=== PATIENT | female | born 1950 | race Caucasian/White ===

== ENCOUNTER → 2018-02-27 09:20 | Outpatient (CLI) | payer OTHER, SELFPAY ==
--- NOTE | 2018-02-27 | DI.MG.S_ITS ---
BILATERAL DIGITAL SCREENING MAMMOGRAM 3D/2D WITH CAD: 02/27/2018 CLINICAL: Routine screening. Family history of breast cancer. Comparison is made to exams dated: 12/08/2016 mammogram, 12/06/2015 mammogram, and 06/04/2014 mammogram - [facility]. The tissue of both breasts is heterogeneously dense. This may lower the sensitivity of mammography. Current study was also evaluated with a Computer Aided Detection (CAD) system. There is a biopsy clip in the right breast. No significant masses, calcifications, or other findings are seen in either breast. There has been no significant interval change. IMPRESSION: NEGATIVE There is no mammographic evidence of malignancy. A 1 year screening mammogram is recommended. This exam was interpreted at Station ID: [id number]. NOTE: For mammograms, a report in lay terms will be sent to the patient. Approximately 15% of breast malignancies will not be visualized mammographically. In the management of a palpable breast mass, a negative mammogram must not discourage biopsy of a clinically suspicious lesion. Electronically Signed By: Kasia seymour/chalino:02/27/2018 09:55:03 letter sent: Normal Exam ACR BI-RADS Category 1: Negative 3341F
== END ==
PROVIDERS: PCP Family Medicine; Visit Provider Orthopaedic Surgery
DX: Z12.31 Encounter for screening mammogram for malignant neoplasm of breast (principal); Z80.3 Family history of malignant neoplasm of breast
CPT/HCPCS: 77063; 77067

== ENCOUNTER → 2018-03-27 15:22 | Outpatient (CLI) | payer OTHER, SELFPAY ==
--- NOTE | 2018-03-27 | DI.RAD.S_ITS ---
PROCEDURE: XR CHEST 2V INDICATIONS: Bronchitis, not specified as acute or chronic TECHNIQUE: 2 views of the chest were acquired. COMPARISON: None. FINDINGS: Surgical changes and devices: None. Lungs and pleura: No pleural effusions or pneumothorax. Lungs are clear. Mediastinum: Mediastinal contours are normal. Heart size is normal. Bones and chest wall: No suspicious bony abnormalities. Age-appropriate bony degenerative changes are seen. Soft tissues appear unremarkable. IMPRESSION: No focal infiltrates are seen. Dictated by: Kristopher Catherine M.D. on 03/27/2018 at 15:00 Approved by: Kristopher Catherine M.D. on 03/27/2018 at 15:00
== END ==
PROVIDERS: PCP Family Medicine; Visit Provider Family Medicine
DX: J40 Bronchitis, not specified as acute or chronic (principal)
CPT/HCPCS: 71046

== ENCOUNTER → 2019-03-26 15:49 | Outpatient (CLI) | payer OTHER, SELFPAY ==
--- NOTE | 2019-03-26 | DI.MG.S_ITS ---
BILATERAL DIGITAL SCREENING MAMMOGRAM 3D/2D WITH CAD: 03/26/2019 CLINICAL: Routine screening. Family history of breast cancer. Comparison is made to exams dated: 02/27/2018 mammogram - [facility], 12/08/2016 mammogram, and 12/06/2015 mammogram - [facility]. The tissue of both breasts is heterogeneously dense. This may lower the sensitivity of mammography. Current study was also evaluated with a Computer Aided Detection (CAD) system. No significant masses, calcifications, or other findings are seen in either breast. There has been no significant interval change. IMPRESSION: NEGATIVE There is no mammographic evidence of malignancy. A 1 year screening mammogram is recommended. This exam was interpreted at Station ID: [id number]. NOTE: For mammograms, a report in lay terms will be sent to the patient. Approximately 15% of breast malignancies will not be visualized mammographically. In the management of a palpable breast mass, a negative mammogram must not discourage biopsy of a clinically suspicious lesion. Electronically Signed By: Calixto diallo/chalino:03/26/2019 21:19:55 letter sent: Normal Exam ACR BI-RADS Category 1: Negative 3341F
== END ==
PROVIDERS: PCP Family Medicine; Visit Provider Family Medicine
DX: Z12.31 Encounter for screening mammogram for malignant neoplasm of breast (principal); Z80.3 Family history of malignant neoplasm of breast
CPT/HCPCS: 77063; 77067

== ENCOUNTER → 2019-06-01 12:39 | Outpatient (CLI) | payer OTHER, SELFPAY ==
--- NOTE | 2019-06-01 | DI.RAD.S_ITS ---
PROCEDURE: XR KNEE RT 3V INDICATIONS: knee pain TECHNIQUE: 3 views of the knee were acquired. COMPARISON: [facility], CR, XR KNEE LT 3V, 06/01/2019, 12:52. FINDINGS: Bones: No fractures or dislocations. No suspicious bony lesions. On the sunrise view, there is moderate to severe lateral patellofemoral joint space narrowing seen. Osteophyte formation can be seen along the margins of the patella. Lateral subluxation of the patella is seen. The femorotibial joint spaces are relatively well-preserved. Soft tissues: There is a minimal to mild right knee joint effusion. No suspicious soft tissue calcifications. IMPRESSION: Moderate to severe lateral patellofemoral joint degenerative change is seen, with lateral subluxation of the patella. Dictated by: Kristopher Catherine M.D. on 06/01/2019 at 12:37 Approved by: Kristopher Catherine M.D. on 06/01/2019 at 12:37
--- NOTE | 2019-06-01 | DI.RAD.S_ITS ---
PROCEDURE: XR KNEE LT 3V INDICATIONS: knee pain TECHNIQUE: 3 views of the knee were acquired. COMPARISON: [facility], CR, XR KNEE RT 3V, 06/01/2019, 12:52. FINDINGS: Bones: No fractures or dislocations. No suspicious bony lesions. The femorotibial joint spaces are relatively well-preserved. On the sunrise view, there is bilateral patellofemoral joint space narrowing seen. Osteophyte formation can be seen along the margins of the patella. Soft tissues: There is a small joint effusion. No suspicious soft tissue calcifications. IMPRESSION: Small left knee joint effusion. Focal lateral patellofemoral joint degenerative change. Dictated by: Kristopher Catherine M.D. on 06/01/2019 at 12:36 Approved by: Kristopher Catherine M.D. on 06/01/2019 at 12:36
== END ==
PROVIDERS: PCP Family Medicine; Visit Provider Family Medicine
DX: M25.561 Pain in right knee (principal); M25.562 Pain in left knee; M25.462 Effusion, left knee; M25.461 Effusion, right knee; M25.762 Osteophyte, left knee; M25.761 Osteophyte, right knee
CPT/HCPCS: 73562

== ENCOUNTER → 2020-04-28 16:34 | Outpatient (CLI) | payer OTHER, SELFPAY ==
--- NOTE | 2020-04-28 16:47 | DI.MG.S_ITS ---
Patient Name: MATT TURNER date: 1950 Sex: F Attending Physician: Niya Indications: Date: 04/28/2020 16:41 At the request of: JUAN J RUIZ Procedure: MM screening mammo BI BILATERAL DIGITAL SCREENING MAMMOGRAM 3D/2D WITH CAD: 04/28/2020 CLINICAL: Routine screening. Family history of breast cancer. Comparison is made to exams dated: 03/26/2019 mammogram, 02/27/2018 mammogram - [facility], and 12/08/2016 mammogram - [facility]. The tissue of both breasts is heterogeneously dense. This may lower the sensitivity of mammography. Current study was also evaluated with a Computer Aided Detection (CAD) system. No significant masses, calcifications, or other findings are seen in either breast. There has been no significant interval change. IMPRESSION: NEGATIVE There is no mammographic evidence of malignancy. A 1 year screening mammogram is recommended. This exam was interpreted at Station ID: [id number]. NOTE: For mammograms, a report in lay terms will be sent to the patient. Approximately 15% of breast malignancies will not be visualized mammographically. In the management of a palpable breast mass, a negative mammogram must not discourage biopsy of a clinically suspicious lesion. Electronically Signed By: Andi Mcdonnell M.D., jr/chalino:04/28/2020 16:57:15 letter sent: Normal Exam ACR BI-RADS Category 1: Negative 3341F
== END ==
PROVIDERS: PCP Family Medicine; Referring Provider Family Medicine; Visit Provider Family Medicine
DX: Z12.31 Encounter for screening mammogram for malignant neoplasm of breast (principal); Z80.3 Family history of malignant neoplasm of breast
CPT/HCPCS: 77063; 77067

== ENCOUNTER → 2021-05-25 15:07 | Outpatient (CLI) | payer OTHER, SELFPAY ==
--- NOTE | 2021-05-25 | DI.MG.S_ITS ---
BILATERAL DIGITAL SCREENING MAMMOGRAM 3D/2D WITH CAD: 05/25/2021 CLINICAL: Routine screening. Family history of breast cancer. Comparison is made to exams dated: 04/28/2020 mammogram, 03/26/2019 mammogram, and 02/27/2018 mammogram - [facility]. The tissue of both breasts is heterogeneously dense. This may lower the sensitivity of mammography. Current study was also evaluated with a Computer Aided Detection (CAD) system. No significant masses, calcifications, or other findings are seen in either breast. There has been no significant interval change. IMPRESSION: NEGATIVE There is no mammographic evidence of malignancy. A 1 year screening mammogram is recommended. This exam was interpreted at Station ID: [id number]. NOTE: For mammograms, a report in lay terms will be sent to the patient. Approximately 15% of breast malignancies will not be visualized mammographically. In the management of a palpable breast mass, a negative mammogram must not discourage biopsy of a clinically suspicious lesion. Electronically Signed By: Elder florian/chalino:05/25/2021 16:12:47 copy to: ALEC FITZPATRICK letter sent: Normal Exam ACR BI-RADS Category 1: Negative 3341F
--- NOTE | 2021-05-25 | DI.RAD.S_ITS ---
PROCEDURE: XR DEXA AXIAL SKELETON INDICATIONS: ROUTINE SCREENING COMPARISON: None. FINDINGS: This blank DEXA report has been sent in error by the PACS system. The correct and complete report will be forthcoming in 1-2 days. Thank you for your patience and understanding. Dictated by: Amee Cleaning MD, PhD on 05/26/2021 at 10:04 Approved by: Amee Cleaning MD, PhD on 05/26/2021 at 10:04
== END ==
PROVIDERS: PCP Family Medicine; Referring Provider Family Medicine; Visit Provider Family Medicine
DX: M85.80 Other specified disorders of bone density and structure, unspecified site (principal); Z12.31 Encounter for screening mammogram for malignant neoplasm of breast; M81.0 Age-related osteoporosis without current pathological fracture; Z80.3 Family history of malignant neoplasm of breast
CPT/HCPCS: 77063; 77067; 77080

== ENCOUNTER → 2022-08-30 14:58 | Outpatient (CLI) | payer OTHER, SELFPAY ==
--- NOTE | 2022-08-30 | DI.MG.S_ITS ---
BILATERAL DIGITAL SCREENING MAMMOGRAM 3D/2D WITH CAD: 08/30/2022 CLINICAL: Routine screening. Family history of breast cancer. Comparison is made to exams dated: 05/25/2021 mammogram, 04/28/2020 mammogram, and 03/26/2019 mammogram - [facility]. Both breasts are heterogeneously dense, which may obscure small masses (category c / 51-75% glandular tissue). Current study was also evaluated with a Computer Aided Detection (CAD) system. No significant masses, calcifications, or other findings are seen in either breast. There has been no significant interval change. IMPRESSION: NEGATIVE There is no mammographic evidence of malignancy. A 1 year screening mammogram is recommended. Based on the Tyrer Cuzick model (a risk assessment model) the patient's lifetime risk is 7.3% and her 10 year risk is 5.5%. According to the ACR, ACS, and NCCN guidelines, an annual breast MRI exam along with mammogram is recommended if the patient's lifetime risk is 20% or greater. This exam was interpreted at Station ID: [id number]. NOTE: For mammograms, a report in lay terms will be sent to the patient. Approximately 15% of breast malignancies will not be visualized mammographically. In the management of a palpable breast mass, a negative mammogram must not discourage biopsy of a clinically suspicious lesion. Electronically Signed By: Andi Mcdonnell M.D., jr/chalino:08/31/2022 12:43:26 copy to: ALEC FITZPATRICK letter sent: Normal Exam ACR BI-RADS Category 1: Negative 3341F
--- NOTE | 2022-08-30 14:59 | DI.MRI.S_ITS ---
PROCEDURE: MR FOOT RT WO CON INDICATIONS: RIGHT ANKLE AND FOOT PAIN TECHNIQUE: Noncontrast sagittal T1 spin echo and T2 fast spin echo with fat saturation, long-axis T1 spin echo and stir, short-axis T1 spin echo and T2 fast spin echo with fat saturation through the forefoot. COMPARISON: None. FINDINGS: Image quality: Excellent. Bones and joints: Mildly displaced fracture of the anterior process of the calcaneus is partially imaged at the margins of the field of view of this exam with associated osseous edema. Irregular bone injury and possible fracture of the adjacent cuboid bone is also noted. Findings are better evaluated on the MR ankle exam performed the same time. Mild osseous edema is seen in the plantar portion of the talar head and plantar lateral navicular. There is mild focal osseous edema at the dorsal aspect of the 5th metatarsal head without a discrete fracture line, possibly related to direct contusion. No acute fracture is seen in the forefoot. Soft tissues: There is grade 3 fatty infiltration of the intrinsic foot musculature that is most likely related to chronic denervation changes. Visualized flexor and extensor tendons appear intact, without tenosynovitis. The distal insertions of the peroneus brevis and longus tendons appear intact. The principal Lisfranc ligament appears intact. No soft tissue ganglion cysts or bursal fluid collections. Sagittal images demonstrate no evidence for plantar plate tears. IMPRESSION: 1. Minimally displaced fracture of the anterior process of the calcaneus extending into the calcaneocuboid articulation. Moderate trabecular bone injury and suspected nondisplaced fracture of the cuboid. Mild trabecular bone injury at the plantar aspect of the talar head and navicular. Findings are included at the margins of the field of view of this exam and are better seen on the MRI of the ankle performed same time. Please see the separate report from that exam for detailed findings. 2. Mild osseous edema in the 5th metatarsal head may be secondary to a direct contusion. 3. Fatty infiltration of the intrinsic foot musculature is most likely secondary to chronic denervation changes. Approved by: Raj Stubbs M.D. on 08/30/2022 at 20:40
--- NOTE | 2022-08-30 14:59 | DI.MRI.S_ITS ---
PROCEDURE: MR ANKLE RT WO CON INDICATIONS: RIGHT ANKLE AND FOOT PAIN TECHNIQUE: Noncontrast sagittal T1 spin echo and T2 fast spin echo with fat saturation, axial proton density fast spin echo and T2 fast spin echo with fat saturation, coronal T1 spin echo and T2 fast spin echo with fat saturation through the ankle/hindfoot. COMPARISON: None. FINDINGS: Image quality: Excellent. Bones and joints: There is extensive marrow edema involving mid to distal portion of calcaneus, adjacent cuboid, inferior portion of mid to distal talus adjacent to subtalar joint and inferior portion of navicular bone. Fracture through distal and superior portion of the calcaneus adjacent to calcaneocuboid joint is seen with up to 3 mm diastasis at fracture site. Subtle linear hypointense signal involving lateral periphery of proximal cuboid is also seen. No other fracture line is identified. No osteochondral injuries of talar dome. Small to moderate amount of tibiotalar and subtalar joint effusion is noted, no gross loose bodies. Mild midfoot and hindfoot joint osteoarthritic changes are seen. Medial structures: The posterior tibialis, flexor digitorum longus, and flexor hallucis longus tendons are intact. The posterior tibial neurovascular bundle appears normal within the tarsal tunnel, without extrinsic mass effect. The deep layer (anterior and posterior tibiotalar ligaments) and superficial layer (tibionavicular, tibiospring, and tibiocalcaneal ligaments) of the deltoid ligament appear normal. The spring ligament components (superomedial calcaneonavicular, medioplantar oblique calcaneonavicular, and inferoplantar longitudinal ligaments) are intact. Lateral structures: The anterior talofibular ligament is markedly attenuated with intrasubstance T2 hyperintense signal suggestive of moderate to high-grade partial-thickness tear. The calcaneofibular, and posterior talofibular ligaments are mildly thickened. Small amount of fluid distending flexor tendon sheath at the level of talonavicular joint is seen. More superiorly, the anterior and posterior tibiofibular ligaments appear intact, as is the intermalleolar ligament. The tibiofibular syndesmosis is normal in width at 2 mm or less. The peroneus longus and brevis tendons are mildly thickened with small amount of fluid distending tendon sheath along lateral periphery of mid to distal calcaneus and calcaneocuboid joint.. Adjacent bony peroneal tubercle and retrotrochlear prominence are normal in size. The sinus tarsi demonstrates normal fatty signal, without edema, fibrosis, or cyst formation. Visualized sinus tarsi components (cervical ligament, interosseous talocalcaneal ligament, roots of the inferior extensor retinaculum) appear normal. The calcaneonavicular and calcaneocuboid components of the bifurcate ligament appear intact. The dorsal calcaneocuboid ligament appears intact. Anterior structures: The tibialis anterior, extensor hallucis longus, and extensor digitorum longus tendons appear intact. The dorsal talonavicular ligament appears intact. Posterior and plantar structures: Achilles tendon is intact. Medial and lateral bands of the plantar fascia are of normal thickness. No abductor digiti quinti muscle atrophy to suggest Garcia neuropathy. IMPRESSION: 1. Slightly displaced fracture involving dorsal and lateral portion of distal calcaneus adjacent to calcaneocuboid joint. Subtle nondisplaced fracture also noted involving adjacent lateral portion of proximal cuboid bone. Bony contusion involving inferior aspect of distal talus without discrete fracture line. Mild bony contusion also seen involving inferior inferior and lateral aspect of navicular bone without discrete fracture line. 2. Small to moderate amount of joint effusion, no gross loose bodies. Mild midfoot and hindfoot joint osteoarthritis. No osteochondral injuries of talar dome. 3. Low-grade tenosynovitis involving flexor tendons. Tendinosis and low-grade tenosynovitis involving peroneus tendons as above. No full-thickness ankle tendon rupture. 4. Suggestion of moderate to high-grade partial-thickness tear involving anterior talofibular ligament. Low-grade sprain involving posterior talofibular ligament and calcaneofibular ligament. Dictated by: Gonzalo Bobo M.D. on 08/30/2022 at 17:20 Approved by: Gonzalo Bobo M.D. on 08/30/2022 at 17:31
== END ==
PROVIDERS: PCP Family Medicine; Referring Provider Family Medicine; Visit Provider Family Medicine
DX: Z12.31 Encounter for screening mammogram for malignant neoplasm of breast (principal); Z80.3 Family history of malignant neoplasm of breast; S92.001A Unspecified fracture of right calcaneus, initial encounter for closed fracture; S92.214A Nondisplaced fracture of cuboid bone of right foot, initial encounter for closed fracture; S93.491A Sprain of other ligament of right ankle, initial encounter; S93.411A Sprain of calcaneofibular ligament of right ankle, initial encounter; M19.071 Primary osteoarthritis, right ankle and foot; M25.571 Pain in right ankle and joints of right foot; M25.471 Effusion, right ankle; M65.871 Other synovitis and tenosynovitis, right ankle and foot; X58.XXXA Exposure to other specified factors, initial encounter
CPT/HCPCS: 73718; 73721; 77063; 77067

== ENCOUNTER → 2022-09-22 14:42 | Outpatient (CLI) | payer OTHER, SELFPAY | PROVIDERS: PCP Family Medicine; Referring Provider Family Medicine; Visit Provider Family Medicine | DX: S92.054A Nondisplaced other extraarticular fracture of right calcaneus, initial encounter for closed fracture; Z78.0 Asymptomatic menopausal state; Z92.23 Personal history of estrogen therapy | CPT/HCPCS: 77080 ==

== ENCOUNTER → 2023-06-27 12:37 | Outpatient (CLI) | payer OTHER, SELFPAY ==
--- NOTE | 2023-06-27 12:38 | DI.US.S_ITS ---
PROCEDURE: US PELVIC COMPLETE INDICATIONS: PMB; ENDOMETRIAL HYPERPLASIA TECHNIQUE: Real-time scanning was performed of the pelvic organs, with image documentation. Additional endovaginal scanning was necessary due to incomplete visualization of the adnexal and endometrial structures by transabdominal scanning. COMPARISON: None. FINDINGS: Uterus: Uterus is anteverted and normal in size at 6.8 by 4.9 cm. The myometrium is homogeneous. The endometrium measures 10.4 mm combined thickness. There is a 2.2 x 2.8 x 1.6 centimeter left-sided submucosal fibroid. Ovaries: The ovaries are not definitely seen. No adnexal masses are seen. Other: No pathologic free abdominal or pelvic fluid. IMPRESSION: 1. Thickened endometrium at 10.4 millimeters. Given the imaging findings possible endometrial biopsy should be considered. 2. 2.8 centimeter left-sided sub mucosal fibroid. 3. Ovaries not definitely visualized. .We strive to produce accurate, complete, and clear reports of imaging services. To assist us in improving patient care, this report was composed using standard report templates and voice recognition software. Therefore, it may contain abnormal punctuation, insertions and/or omissions. Occasional wrong-word or sound-alike substitutions may occur. Though we review the report and make efforts to correct it, we do recommend that the report be read carefully in proper context to recognize any text inaccuracies. Dictated by: Rodney Morales M.D. on 06/27/2023 at 15:39 Approved by: Rodney Morales M.D. on 06/27/2023 at 15:45
== END ==
PROVIDERS: PCP Family Medicine; Referring Provider Obstetrics & Gynecology; Visit Provider Obstetrics & Gynecology
DX: N95.0 Postmenopausal bleeding (principal); R93.89 Abnormal findings on diagnostic imaging of other specified body structures; D25.0 Submucous leiomyoma of uterus
CPT/HCPCS: 76830; 76856

== ENCOUNTER → 2023-09-12 11:40 | Outpatient (CLI) | payer OTHER, SELFPAY ==
--- NOTE | 2023-09-12 | DI.MG.S_ITS ---
BILATERAL DIGITAL SCREENING MAMMOGRAM 3D/2D WITH CAD: 09/12/2023 CLINICAL: Routine screening. Family history of breast cancer. Comparison is made to exams dated: 08/30/2022 mammogram, 05/25/2021 mammogram, 04/28/2020 mammogram, and 03/26/2019 mammogram - [facility]. Both breasts are heterogeneously dense, which may obscure small masses (category c / 51-75% glandular tissue). Current study was also evaluated with a Computer Aided Detection (CAD) system. There is a biopsy clip in the right breast. No significant masses, calcifications, or other findings are seen in either breast. There has been no significant interval change. IMPRESSION: NEGATIVE There is no mammographic evidence of malignancy. A 1 year screening mammogram is recommended. Based on the Tyrer Cuzick model (a risk assessment model) the patient's lifetime risk is 6.9% and her 10 year risk is 5.7%. According to the ACR, ACS, and NCCN guidelines, an annual breast MRI exam along with mammogram is recommended if the patient's lifetime risk is 20% or greater. This exam was interpreted at Station ID: [id number]. NOTE: For mammograms, a report in lay terms will be sent to the patient. Approximately 15% of breast malignancies will not be visualized mammographically. In the management of a palpable breast mass, a negative mammogram must not discourage biopsy of a clinically suspicious lesion. Electronically Signed By: Martin javier/chalino:09/12/2023 20:45:34 copy to: ALEC FITZPATRICK letter sent: Normal Exam ACR BI-RADS Category 1: Negative 3341F
== END ==
LOC: MAMMO 11:40
PROVIDERS: PCP Family Medicine; Referring Provider Family Medicine; Visit Provider Family Medicine
DX: Z12.31 Encounter for screening mammogram for malignant neoplasm of breast (principal); Z80.3 Family history of malignant neoplasm of breast; R92.333 Mammographic heterogeneous density, bilateral breasts
CPT/HCPCS: 77063; 77067

== ENCOUNTER 2023-10-26 06:22 | Day surgery (SDC) | payer OTHER, SELFPAY ==
[2023-10-25 08:28] VITALS: BMI 27.6
[2023-10-26] VITALS (13 sets, daily range): BP systolic 86–134; BP diastolic 48–80; PULSE 53–75; RESP 12–18; TEMP 36.2–37.8; O2SAT 94–100; BMI 27.6
--- NOTE | 2023-10-26 | PATH_ITS ---
[facility] Accession Number: [id number] No. of containers..01 Tissue . 01 Material submitted: . uterus - CERVIX,UTERUS,BILATERIAL FALLOPIAN TUBES, BILATERAL OVARIES . 01 Diagnosis: CERVIX, UTERUS, BILATERAL FALLOPIAN TUBES AND BILATERAL OVARIES, HYSTERECTOMY AND BILATERAL SALPINGO-OOPHORECTOMY: Cervix with mild chronic inflammation; no dysplasia or malignancy. Inactive endometrium. Benign endometrial polyp. Leiomyomata. Bilateral ovaries with benign inclusion cysts but with otherwise no significant pathologic alterations. Bilateral fimbriated fallopian tubes with benign paratubal cyst but with otherwise no significant pathologic alterations. [facility] 11/02/2023 1501 Local . 01 Electronically signed: . Mel Zavaleta MD, Pathologist NPI- [id number] . 01 Gross description: . The specimen is received in formalin labeled with the patient's name, , and cervix, uterus, bilateral fallopian tubes, bilateral ovaries, and consists of a uterus with detached cervix (104 grams, 5.6 cm from superior to inferior, 5.5 cm from medial to lateral, and 4.1 cm from anterior to posterior), with detached cervix (1.2 x 1.1 cm and 4.7 cm in length), with attached left fallopian tube (6.4 x 0.7 cm), attached left ovary (5 grams, 3.5 x 1.6 x 0.9 cm), attached right fallopian tube (6.3 x 0.6 cm), attached right ovary (5 grams, 3.5 x 1.5 x 1.0 cm). . The ectocervix is smith, friable, and denuded with a circular os measuring 0.3 cm in diameter. The paracervical margin is inked red. . The anterior cut surface of the uterus is inked blue while the posterior cut surface of the uterus is inked black. The serosa is smith and smooth with a small freely moving yellow-orange nodule measuring0.3 x 0.2 x 0.2 cm with no additional lesions identified. The endocervical canal has smith herringbone mucosa and measures 3.5 cm in length. The endometrial cavity measures 3.1 cm from cornu to cornu, 2.1 cm in length with pink-red, velvety endometrium, and a polypoid lesion measuring 2.3 x 0.7 x 0.5 cm. The endometrium averages less than 0.1 cm thick. The myometrium is pink-smith and trabecular measuring up to 2.1 cm in maximum thickness with multiple well-circumscribed white whorled nodules ranging from 0.6 to 2.2 cm with no hemorrhage or necrosis identified. . The left fallopian tube has violaceous, smooth serosa with no cysts identified, and sectioning reveals an unremarkable stellate lumen. The left ovary has a yellow, cerebriform external surface, and sectioning reveals a thin, smooth-walled cystic structure measuring 0.6 cm in greatest dimension with no excrescences identified and filled with smith serous fluid. The remaining cut surfaces are physiologic and unremarkable. . The right fallopian tube has smith, smooth serosa with no cysts identified, and sectioning reveals an unremarkable stellate lumen. The left ovary has a yellow, cerebriform external surface, and sectioning reveals a smiht, soft cut surface with no discrete lesions identified. . Atv Mechanic sections are submitted as follows: A1: Cervix. A2: Anterior full thickness section. A3: Posterior full thickness section. A4: Endometrial polypoid structure. A5: Serosa with nodule. A6: Well-circumscribed nodules. A7: Left fallopian tube to include one-half of bisected fimbriae and cross-sections. A8: Left ovary. A9: Right fallopian tube to include one-half of bisected fimbriae and cross-sections. A10: Right ovary. ([id number]) /JACQUELINE 10/27/20238 Local . 01 Pathologist provided ICD-10: N95.0, N84.0, D25.9 . 01 CPT . 546430 Specimen Comment: A courtesy copy of this report has been sent to [phone] Performed at: 01 [facility] [address], [place], [place] [id number] MD Elder Johnson MD Phone: [phone]
[2023-10-26] MEDS: LACTATED RINGERS 1,000 ML 42 ML IV ×2 (07:16→08:48)
--- NOTE | 2023-10-26 07:40 | PM.PREOP ---
Pre-operative Note COVID-19 COVID-19 status: Not tested Interval Note History & Physical reviewed/Exam performed by Physician: Yes Changes to H&P: No
[2023-10-26] MEDS: ACETAMINOPHEN IV 1,000 MG/100 ML VIAL 400 MG IV (08:00)
[2023-10-26] MEDS: CEFAZOLIN 2 GM/100 ML PREMIX 100 ML IV (08:07)
--- NOTE | 2023-10-26 08:14 | SUR.OPER ---
Lithotomy on padded OR bed. [place] Pad Positioner under torso. Head on pillow, arms padded and tucked at sides. Legs secured in padded yellow fins stirrups.
[2023-10-26] MEDS: BUPIVACAINE 0.5% (PF) 30 ML, EPINEPHrine 0.15 MG INJ (08:18)
[2023-10-26] MEDS: ROPIVACAINE 0.2% PF 2 MG/ML 10ML AMP 20 ML INJ (08:19)
--- NOTE | 2023-10-26 10:06 | P.OP_ITS ---
Operative Date/Time/Diagnoses Date of procedure: 10/26/23 Time of procedure: 08:05 Pre-op diagnosis: Persistent postmenopausal bleeding Submucous myoma Post-op diagnosis: same Procedure & Clinicians Procedure: Procedures Operation Date: 10/26/23 07:45 Actual Procedure Side Surgeon p Laparoscopic Total Hysterectomy with bilateral salpingo-oophorectomy Luigi Isidro MD Indications: Liz is a 70 yo WF who had elected to continue low-dose HRT due to night sweats and vasomotor symptoms which are relieved only with estrogen therapy. She was on Vivelle Dot 0.05 mg daily and Prometrium 200 mg HS. Her most recent mammogram was 02/2020 and she's noted no changes on BSE or any PMB. Despite her negative w orkup in 2021, Liz has continued to episodically have spotting and decided to discontinue her hormone replacement therapy back on November 24, 2021. She is feeling well off of HRT and is not having issues sleep she would had previously when she attempted to discontinue HRT. Her , is however concerned that there may be an occult malignancy and suggested she consider hysterectomy. After extensive discussions with the patient and her , she wants to move forward with total laparoscopic hysterectomy and bilateral salpingo- oophorectomy. She presents today for her scheduled surgery. Surgeon: Luigi Isidro Radiological Defense Officer: Jennifer Rose Anesthesia Type: General Operative Notes Findings: The body of the uterus is normal in size and shape with the exception of a submucous/intramural myoma involving the back wall of the uterine fundus. Both tubes and ovaries appear normal. In the posterior cul-de-sac there are translucent white blebs which may be consistent with atrophic endometriosis implants. The remainder of the abdomen and pelvis were normal to laparoscopic inspection. Closure Type: primary Specimen(s): left tube & ovary, right tube & ovary and uterus Applied: catheter Estimated blood loss (mL): 75 Blood products transfused: none Procedure in detail: With the patient in modified dorsal lithotomy position preparations were made by prepping and draping the patient in usual manner for vaginal surgery and insertion of Pineda catheter. A pre-surgical time-out was then taken in accordance with [facility] OR policy. A bivalve speculum was then placed in the vagina and the cervix visualized. The anterior lip of the cervix was then grasped with a single-tooth tenaculum. The uterus was sounded to 7 cm, the endocervical canal dilated slightly, and a VCare uterine manipulator with a small colpotomy cup was placed. The umbilicus was then infiltrated with 0.5% Marcaine with epinephrine. A 1 cm umbilical incision was made transversely and a Veress needle was used to insufflate the abdominal cavity with carbon dioxide. Once the abdomen was appropriately insufflated, a 5 mm trocar and sleeve were then placed through the umbilical incision. The scope was placed through the trocar and the initial assessment of the intra-abdominal contents carried out. A 2nd and 3rd 5 mm port was then placed 1st in the right mid quadrant from then the left mid quadrant by infiltration of the skin and subcutaneous tissues, a 1 cm transverse incision and insertion of the 5 mm bladeless port. Using a 3 puncture technique, the abdomen and pelvis were inspected laparoscopy and photographically documented. Uterus is mobilized with the VCare manipulator and attention turned to the left adnexa. The distal tube was then grasped and the infundibulopelvic ligament divided after coagulation with the PowerSeal device. The dissection was then carried out toward the cornua, then carried down using the PowerSeal device so as to divide the utero-ovarian ligament and the round ligament with blunt and sharp dissection of the broad down to the level of the uterine artery. The uterine artery was then skeletonized after development of a bladder flap, coagulated, and divided. Once hemostasis was assured on the left side attention was turned to the right and the infundibulopelvic ligament, mesosalpinx, round ligament, and broad ligament were dissected in a fashion exactly the same as it had been on the left. The right uterine artery was then visualized after skeletonization and coagulated and divided. The uterus was seen to boris after coagulation of both your arteries and the cup was identified through the vaginal muscularis at its insertion with the body of the cervix. Circumferential excision of the vaginal cup was accomplished without difficulty using monopolar current and the uterus mobilized. The uterus was then removed through the vagina and the vaginal cuff closed [id number] with a series of 0 Vicryl jiljki-[id number]-zbdeu stitches. Hemostasis was excellent, the abdomen was re-insufflated, and the pelvis inspected laparoscopically. The pelvis was inspected for any abnormality or bleeding, and the ureters were each seen to be peristalsing freely. With complete hemostasis assured, the pneumoperitoneum was vented and the ports removed. All of the 5 mm ports were then closed with 4-0 Monocryl on the skin using inverted interrupted sutures. Skin glue was placed and after the glue was dried, an appropriate dressing was a pplied. The case was then terminated, the patient awakened, and then transferred to PACU after having tolerated the procedure well. Complications: none Post-operative Condition: stable Disposition: PACU Plan for aftercare: Recovery in ambulatory surgery in discharge home later today if pain is under control and she is tolerating oral intake well.
--- NOTE | 2023-10-26 12:33 | PC.NURSE ---
Dr Isidro at bedside. Plan at this time to DC later in evening.
--- NOTE | 2023-10-26 12:34 | PC.NURSE ---
1145 - Pt up to bathroom. Pineda cath removed without issue. Pt states pain remains tolerable. C/o of some gas pains. Plans to walk around room to help with this. Discussed need to void in next 6 hrs. Patient states understanding. SCDs and Continuous Pulse ox removed per patient request.
[2023-10-26] MEDS: IBUPROFEN 600 MG TABLET PO (16:10)
--- NOTE | 2023-10-26 16:44 | PM.DS.1 ---
History of Present Illness History of Present Illness Date Patient Seen: 10/26/23 Time Patient Seen: 16:44 Chief complaint: Total Lap Hysterectomy w/honorio salp *OPB* Narrative: Liz is a 70 yo WF who had elected to continue low-dose HRT due to night sweats and vasomotor symptoms which are relieved only with estrogen therapy. She was on Vivelle Dot 0.05 mg daily and Prometrium 200 mg HS. Her most recent mammogram was 02/2020 and she's noted no changes on BSE or any PMB. Despite her negative workup in 2021, Liz has continued to episodically have spotting and decided to discontinue her hormone replacement therapy back on November 24, 2021. She is feeling well off of HRT and is not having issues sleep she would had previously when she attempted to discontinue HRT. Her , is however concerned that there may be an occult malignancy and suggested she consider hysterectomy. After extensive discussions with the patient and her , she wants to move forward with total laparoscopic hysterectomy and bilateral salpingo-oophorectomy. She presents today for her scheduled surgery. Discharge Providers Provider Date of admission: 10/26/2023 Discharge Date: 10/26/23 Primary care physician: Rodney Núñez MD Discharge provider: Luigi Isidro MD Summary Hospital Course Discharge Diagnosis: Postmenopausal bleeding Submucous myoma Thickened endometrial stripe on ultrasound Status post total laparoscopic hysterectomy with bilateral salpingo oophorectomy Hospital Course: Liz was admitted on the morning of 10/26/2023 and underwent an uneventful total laparoscopic hysterectomy with bilateral salpingo oophorectomy. Details of the procedure well summarized on my operative note of that date. Following surgery the patient has done exceptionally well with prompt return of bowel and bladder function, she is ambulating independently, tolerating regular diet, and her pain is well controlled with oral pain medications. She will be discharged at this time to home in an afebrile normotensive condition after counseling regarding precautionary symptoms, limitations activity, medications, and plans for follow-up which will be in 2 weeks. Medications at discharge will include resumption of all pre-admission medications and she will use wyma-ngs-hjlvdvy Tylenol and/or ibuprofen as needed for pain Status at Discharge Cognitive/behavioral status at discharge: oriented Functional status at discharge: independent ambulation Overall status at discharge: patient is progressing back to baseline Time Spent with Patient Time spent: Less than 30 minutes Exam Vital Signs (past 8 hours): - 10/26/23 09:44 10/26/23 09:49 10/26/23 09:54 Temperature 97.5 F L 97.2 F L Pulse Rate 68 64 64 Respiratory Rate 16 16 12 Blood Pressure 89/60 L 86/48 L 91/49 L Pulse Oximetry 94 95 96 Oxygen Delivery Method Room Air Room Air Room Air 10/26/23 10:06 10/26/23 10:10 10/26/23 10:15 Temperature Pulse Rate 53 L 53 L 58 L Respiratory Rate 14 16 14 Blood Pressure 86/48 L 92/48 L 98/64 Pulse Oximetry 97 98 97 Oxygen Delivery Method Room Air Room Air Room Air 10/26/23 10:21 10/26/23 10:30 10/26/23 11:00 Temperature 97.1 F L 97.3 F L Pulse Rate 75 58 L 56 L Respiratory Rate 16 14 16 Blood Pressure 103/54 L 97/62 102/70 Pulse Oximetry 96 98 96 Oxygen Delivery Method Room Air 10/26/23 12:00 10/26/23 13:00 Temperature 98.1 F Pulse Rate 64 66 Respiratory Rate 18 18 Blood Pressure 118/70 104/69 Pulse Oximetry 100 99 Oxygen Delivery Method Oxygen Delivery Method Room Air Const General: cooperative and comfortable Nutritional Appearance: average body habitus Orientation: alert and oriented x3 HENMT Head: normal to inspection, normocephalic and atraumatic Ears: hearing grossly normal bilaterally Face and sinus: face symmetric Eyes General: appearance normal, both eyes and all related structures Conjunctivae: conjunctivae normal Sclera: sclerae normal EOM: EOM intact bilaterally Neck Neck: normal visual inspection Resp Effort & Inspection: normal respiratory effort and able to speak in complete sentences Auscultation: clear to auscultation bilaterally Cardio Rate: regular rate Rhythm: regular rhythm Heart Sounds: S1 normal, S2 normal and no murmurs GI Inspection: normal to inspection and incision (Dressings are clean and dry.) Palpation: soft, no hepatosplenomegaly and tender (Minimal, diffuse postsurgical tenderness) Auscultation: normal bowel sounds External Female Exam: other (No significant bleeding noted) Extrem General: no calf tenderness Psych Appearance: grossly normal Mental Status: mental status grossly normal Speech and Movement: speech and movement normal Mood: congruent mood Affect: normal affect Attitude: cooperative Thought Process: normal Thought Content: normal Judgment: judgment good [facility] Medical History (Updated 10/25/23 @ 08:31 by Elena Clark RN) Raynaud's phenomenon Sjogrens syndrome Hypothyroidism Surgical History (Updated 01/12/21 @ 11:44 by Luigi Isidro MD) History of mandibular surgery History of cataract extraction with lens replacement Family History (Updated 01/12/21 @ 11:48 by Luigi Isidro MD) Father Pulmonary embolism Mother No problems noted. Grandfather Ruptured appendicitis Grandfather Diabetes mellitus ASCVD (arteriosclerotic cardiovascular disease) Social History household members: spouse Smoking Status: Former smoker alcohol intake: former Discharge Assessment & Plan Assessment and Plan Assessment: Postmenopausal bleeding Submucous myoma Thickened endometrial stripe on ultrasound Status post total laparoscopic hysterectomy with bilateral salpingo oophorectomy Plan of Treatment: Routine postoperative care with follow-up planned for 2 weeks postop. Discharge Plan Discharge Plan Patient Disposition: Home Provider Discharge Comment: Please review the written instructions you received when you were discharged from the hospital. Your follow-up appointment is scheduled for 2 weeks after your surgery and I look forward to seeing you then. If however in the meanwhile you have any issues, concerns, questions, please contact me either through the office phone at [phone], or via the patient portal. Discharge orders & Medications Discharge Orders: Discharge (Order); Ordered 10/26/23 Ordered By: Luigi Isidro Prescriptions: New ciprofloxacin HCl [Cipro] 500 mg tablet 500 mg PO BID 5 Days Qty: 10 0RF Continued Cequa 0.09 % dropperette EYE-BOTH Q12H Follow up/Referrals: Rodney Núñez MD [Primary Care Provider] - Luigi Isidro MD [Physician] - Diet/Activity/Treatments Diet: Diet as Tolerated Activity: As tolerated Other treatments: Cflv-[id number] Tylenol and/or ibuprofen may used as needed for pain relief. Rxct-dgc-cyvrmkv stool softeners and/or MiraLax constipation. Skin/Wound/Dressing Care Report to your healthcare provider any signs of infection, such as:: chills, fever, increased pain, unusual drainage and unusual redness Dressing: Dressings should be removed on morning 10/28/2023 Visit Report/Discharge Packet Instructions: DI for Hysterectomy, DI for Laparoscopy Discharge Data Primary Care Provider: Rodney Núñez Attending Provider: Luigi Isidro
--- NOTE | 2023-10-26 17:35 | PC.NURSE ---
Patient ready for DC. Given DC instruction to patient and spouse. Pt states understanding. Ambulated out of unit to private vehicle accompanied by spouse.
== END 2023-10-26 17:18 | disposition home or self-care (01) ==
LOC: OR 06:24 → AC 06:25 → LABOR 11:25
PROVIDERS: PCP Family Medicine; Referring Provider Obstetrics & Gynecology; Visit Provider Obstetrics & Gynecology
PROC: 0UT94ZZ Resection of Uterus, Percutaneous Endoscopic Approach (ICD-10-PCS; CPT 58571; principal; 2023-10-26 07:45)
DX: N95.0 Postmenopausal bleeding (principal); D25.0 Submucous leiomyoma of uterus; N72 Inflammatory disease of cervix uteri; N84.0 Polyp of corpus uteri; N83.8 Other noninflammatory disorders of ovary, fallopian tube and broad ligament
CPT/HCPCS: 58571; J0136; J0171; J0690; J1100; J1885; J2405; J2704; J2795; J3010

== ENCOUNTER → 2024-09-17 15:34 | Outpatient (CLI) | payer OTHER, SELFPAY ==
[2023-10-26 11:00] VITALS: BMI 27.6
--- NOTE | 2024-09-17 15:34 | DI.MG.S_ITS ---
BILATERAL DIGITAL SCREENING MAMMOGRAM 3D/2D WITH CAD: 09/17/2024 CLINICAL: Routine screening. Family history of breast cancer. Comparison is made to exams dated: 09/12/2023 mammogram, 08/30/2022 mammogram, and 05/25/2021 mammogram - [facility]. The breasts are heterogeneously dense, which may obscure small masses (category c / 51-75% glandular tissue). Current study was also evaluated with a Computer Aided Detection (CAD) system. There is a biopsy clip in the right breast. No significant masses, calcifications, or other findings are seen in either breast. There has been no significant interval change. IMPRESSION: NEGATIVE There is no mammographic evidence of malignancy. A 1 year screening mammogram is recommended. Based on the Tyrer Cuzick model (a risk assessment model) the patient's lifetime risk is 6.4% and her 10 year risk is 5.8%. According to the ACR, ACS, and NCCN guidelines, an annual breast MRI exam along with mammogram is recommended if the patient's lifetime risk is 20% or greater. This exam was interpreted at Station ID: [id number]. NOTE: For mammograms, a report in lay terms will be sent to the patient. Approximately 15% of breast malignancies will not be visualized mammographically. In the management of a palpable breast mass, a negative mammogram must not discourage biopsy of a clinically suspicious lesion. Electronically Signed By: Raj joy/chalino:09/18/2024 12:20:05 copy to: ALEC FITZPATRICK letter sent: Normal Exam ACR BI-RADS Category 1: Negative
== END ==
PROVIDERS: PCP Family Medicine; Referring Provider Family Medicine; Visit Provider Family Medicine
DX: Z12.31 Encounter for screening mammogram for malignant neoplasm of breast (principal); Z80.3 Family history of malignant neoplasm of breast; R92.333 Mammographic heterogeneous density, bilateral breasts
CPT/HCPCS: 77063; 77067